=== PATIENT | female | born 1970 | race Caucasian/White ===

== ENCOUNTER 2023-04-17 14:18 | Emergency (ER) | payer MEDICAID, SELFPAY ==
[2023-04-17 14:21] VITALS: BP 186/99; PULSE 68; RESP 13; TEMP 36.7; O2SAT 98
[2023-04-17 14:29] VITALS: BP 186/99; PULSE 67; RESP 16; O2SAT 98
--- NOTE | 2023-04-17 14:31 | EDS_ITS ---
HPI History of Present Illness Chief Complaint: Neuro S/Sx Informant: patient and EMS Narrative Narrative: I also talked directly with EMS to get their history and impressions. Patient presents with visual changes and slight tingling of her face. Patient was at work. She was not doing anything strenuous. She started to get bright lights flashing in her vision. They were more on her left but they were both sides. She just did not feel well with this. But she did not have a headache. Not syncopal or presyncopal. No chest pain or palpitations. She got concerned. She was driving to urgent care. She then got some tingling of her lips and face. She thinks that was just getting very anxious about the visual symptoms. The symptoms are gone now. She just feels concerned now. She never got numbness tingling or weakness or discoordination of arms or legs. She had no trouble speaking or understanding speech. She does have a history of migraines but has not had one for decades. She does not recall ever having a complex migraine. Patient has no medical problems including no history of diabetes, cholesterol, hypertension, heart disease, strokes. Also, her last visit to her private physician was about a year ago so she does get regular medical care and have found no medical problems. She is on no medications at all. She has no allergies. Only surgery is partial hysterectomy. Patient does not know her family history as she is adopted. She has never been a smoker. [facility] Home Medications NK 04/17/23 [History Last Taken Unknown] Allergy/AdvReac Type Severity Reaction Status Date / Time No Known Allergies Allergy Verified 04/17/23 14:30 Surgical History History of partial hysterectomy Social History Smoking Status: Never smoker ROS ROS ED ROS Narrative A complete review of systems was performed and is negative except as documented in the history of present illness. Some specific details below. Constitutional: No recent fevers or chills. No rigors. Patient has not generally felt ill. She felt well until this occurred. EYE: Please see history of present illness. ENT: No difficulty swallowing. No swelling. No sinus pressure or pain. No nasal discharge. No change in hearing. No ear pain. She did have some tingling around her lips and tongue. This was on both sides. CV: No chest pain, pressure or aching. No palpitations or irregular beats. Patient has not been presyncopal or syncopal. Respiratory: No trouble breathing. No cough. No wheezing. No sputum production. No pain with breathing. GI: No abdominal pain. No nausea vomiting diarrhea. No blood in stool. : No frequency dysuria or hematuria. Musculoskeletal: No recent trauma. No pains. No swelling. Skin: No rash. Nondiaphoretic now or with event. Neuro: Please see history of present illness. Endocrine: No polyuria or polydipsia. EXAM Physical Exam Narrative Exam Narrative: CONSTITUTIONAL: Patient is nontoxic in appearance. The patient looks comfortable. Work of breathing looks normal. She is calm. She has coordinated. She can grab things in and out of her purse and move around without any discoordination. HEENT: No notable trauma. Mucous membranes moist. No sinus tenderness. No vesicles. Normal smile and closing eyes. EYES: No conjunctival injection. No proptosis. No pain with range of motion. No pallor. Visual arroyo are normal by direct confrontation. She is also not having symptoms now. NECK: No meningismus. No JVD. CARDIOVASCULAR: Regular rate. Regular rhythm. No notable murmur. No JVD. RESPIRATORY: No respiratory distress. Breathing is unlabored. No wheezes. No rhonchi. No rales. No pain with a deep breath. GASTROINTESTINAL: Not distended. Bowel sounds are normal. No tenderness. No guarding. No rebound. No palpable mass. No bruit. GENITOURINARY: No tenderness over the bladder. No CVA tenderness. MUSCULOSKELETAL: Atraumatic. No peripheral edema. NEUROLOGICAL: Patient is alert and oriented. No focal deficit noted. NIH stroke scale is 0. I cannot bring out any deficit at this time. I also brought up pictures of visual scotoma from the Internet and showed these to the patient. She was able to pick out 2 that reminded her quite similarly to what she had experienced. SKIN: No noted rashes. No diaphoresis. No vesicles noted. No notable pallor. PSYCHIATRIC: Patient is calm. Mood is appropriate. Const Vital Signs: 04/17/23 14:21 04/17/23 14:29 04/17/23 14:55 Temperature 98.0 F Temperature Source Oral Pulse Rate 68 67 61 Respiratory Rate 13 16 16 Blood Pressure 186/99 H 186/99 H 133/102 H Blood Pressure Mean 128 128 112 Pulse Ox 98 98 Oxygen Delivery Method Room Air Room Air Room Air 04/17/23 15:40 04/17/23 16:10 Temperature Temperature Source Pulse Rate 59 L 58 L Respiratory Rate 11 L 8 L Blood Pressure 186/86 H 166/82 H Blood Pressure Mean 119 110 Pulse Ox Oxygen Delivery Method Room Air Room Air MDM MDM MDM Narrative Medical decision making narrative: Patient CBC is normal. Patient's electrolytes are normal. Patient's liver function test are normal. I independent her potation the patient's CT of the head without contrast shows no acute process and this is consistent with a final reading. Patient never had a lateralizing findings. She had visual scotoma on both eyes even though she thinks they may have been more left. She had some tingling around her lips and tongue. She does have a history of migraines although they are remote. She is very low risk for stroke. She is still asymptomatic. I think is reasonable she has close follow-up. I do not have a clinical indication that this is stroke. It is much more likely that this was scotoma related to visual migraines. I explained that she may get a headache up to 2 days after the symptoms. She will follow-up with her private physician. We also recommend getting cholesterol checked as part of total health screening. We do not have any discharge instructions for visual ocular migraines or visual scotoma so I have printed some off of the web and including instructions for classical migraine. Lab Data Attestation: I reviewed the patient's lab results. Labs: Laboratory Results - last 24 hr 04/17/23 14:00 WBC 5.6 RBC 4.53 Hgb 13.8 Hct 42.6 MCV 94.0 MCH 30.5 MCHC 32.4 RDW Std Deviation 40.4 RDW Coeff of Musa 11.8 Plt Count 306 MPV 9.9 Immature Gran % (Auto) 0.400 Neut % (Auto) 53.4 Lymph % (Auto) 30.5 Sequoyah % (Auto) 12.1 H Eos % (Auto) 2.5 Baso % (Auto) 1.1 H Absolute Neuts (auto) 3.0 Absolute Lymphs (auto) 1.72 Nucleated RBC % 0 PT 13.4 INR 1.0 APTT 28.4 Sodium 133 L Potassium 4.0 Chloride 102 Carbon Dioxide 26.0 Anion Gap 5 BUN 13 Creatinine 0.88 Est GFR (MDRD) Af Amer 87 Est GFR (MDRD) Non-Af 72 BUN/Creatinine Ratio 14.9 Glucose 93 Calcium 8.9 Total Bilirubin 0.30 AST 18 ALT 34 Alkaline Phosphatase 72 Total Protein 7.5 Albumin 4.1 Globulin 3.4 Albumin/Globulin Ratio 1.2 Radiography Diagnostic Testing: Clinical Impression(s) from Imaging Studies Brain CT 04/17/23 15:25 IMPRESSION: Negative head/brain CT without intravenous contrast. Electronically Signed: Ambrocio Izquierdo MD at 15:48 EDT , EKG Initial EKG: Comments: My independent interpretation the patient's EKG shows a normal sinus rhythm with overall rate at 70. No ectopy. No acute ST elevation or depression. MD interval QRS duration and QTc are normal. This is overall a normal EKG. Discharge Plan Triage Chief Complaint: Neuro S/Sx ED Provider: Moreno Hope Dx/Rx/DC Orders Clinical Impression: Facial tingling sensation, Visual field scotoma of both eyes Instructions: ED, Migraine (Classical) Prescriptions: No Action NK Primary Care Provider: Care Physician,No Primary Referrals: Care Physician,No Primary [Primary Care Provider] - Activity Restrictions/Additional Instructions: Follow-up with your physician in [place] as soon as possible Disposition Disposition: Home, Self Care
--- NOTE | 2023-04-17 14:31 | EKG12_ITS ---
Test Reason : nuero Blood Pressure : / mmHG Vent. Rate : 060 BPM Atrial Rate : 060 BPM P-R Int : 142 ms QRS Dur : 074 ms QT Int : 424 ms P-R-T Axes : 016 007 013 degrees QTc Int : 424 ms Normal sinus rhythm Normal ECG Confirmed by TORO GREEN, LOPEZ ([id number]), advertising editor JE KILPATRICK ([id number]) on 04/19/2023 11:30:07 AM Referred By: Confirmed By:CHAPIS ENGEL MD
[2023-04-17 14:46] LABS: Absolute Lymphocyte Count 1.72 X10^3/uL (0.83-4.51); Basophil# 0.06 X10^3/uL; Basophil% 1.1 % (0-1); Eosinophil# 0.14 X10^3/uL; Eosinophils% 2.5 % (0-5); Hematocrit 42.6 % (37-47); Hemoglobin 13.8 g/dL (12.0-15.0); Lymphocyte # 1.72 X10^3/ul (0.83-4.51); Lymphocyte % 30.5 % (19-41); Mean Corp Hgb Conc 32.4 g/dL (32-36); Mean Corpuscular Hgb 30.5 pg (27.0-32.0); Mean Platelet Vol. 9.9 fl (6.2-12.0); Monocyte# 0.68 X10^3/uL; Monocyte% 12.1 % (0-10); NRBC Flagged by Analyzer 0 % (0-5); Neutrophil # 3.02 X10^3/uL (2.7-7.7); Neutrophil % 53.4 % (47-70); Platelet Count 306 K/mm3 (150-450); RBC Distribution Width CV 11.8 % (11.6-14.6); RBC Distribution Width SD 40.4 fl (35.1-43.9); Red Blood Count 4.53 M/mm3 (4.2-5.4); White Blood Count 5.6 K/mm3 (4.4-11.0)
[2023-04-17 14:54] LABS: Prothrombin Time (Protime)PT. 13.4 SECONDS (11.7-14.9)
[2023-04-17 14:55] VITALS: BP 133/102; PULSE 61; RESP 16
[2023-04-17 14:55] LABS: Partial Thromboplast Time 28.4 Seconds (24.1-36.2)
[2023-04-17 15:11] LABS: ALB/GLOB Ratio 1.2 RATIO (0.9-2.4); AST(SGOT) 18 U/L (15-37); Alanine Aminotransfer ALT/SGPT 34 U/L (13-56); Albumin, Serum 4.1 g/dL (3.2-5.0); Alkaline Phosphatase 72 U/L (45-117); Anion Gap 5 (5-15); BUN 13 mg/dL (7-18); BUN/Creat Ratio 14.9 RATIO (10-20); Calcium,Total 8.9 mg/dL (8.5-10.1); Chloride 102 mmol/L (98-107); Creatinine, Serum 0.88 mg/dL (0.55-1.02); EST Glomerular Filtration Rate 72 mL/min (>60); Est Glom Filt Rate - Afr Amer 87 mL/min (>60); Globulin 3.4 g/dL (2.2-4.2); Glucose 93 mg/dL (74-106); Protein, Total 7.5 g/dL (6.4-8.2); Sodium Level 133 mmol/L (136-145)
--- NOTE | 2023-04-17 15:25 | CT_ITS ---
EXAM: CT HEAD WITHOUT INTRAVENOUS CONTRAST CLINICAL INDICATION: Visual scotoma TECHNIQUE: Multiple axial images were obtained of the head without intravenous contrast. This CT exam was performed using one or more of the following dose reduction techniques: automated exposure control, adjustment of the mA and/or kV according to patient size, and/or use of iterative reconstruction technique. RADIATION DOSE: CTDIvol = 44.99 mGy, DLP = 796.11 mGy-cm COMPARISON: No relevant prior studies available. FINDINGS: BRAIN AND EXTRA-AXIAL SPACES: Unremarkable. No intra- or extra-axial hemorrhage. No evidence of acute infarct. No intracranial mass or mass effect. There is preservation of the jules/white matter interface. Posterior fossa structures are unremarkable. Ventricles are appropriate for age. No hydrocephalus. Basal cisterns are patent. BONES/JOINTS: Unremarkable. No discrete lytic or blastic abnormalities. SINUSES: Unremarkable as visualized. Clear. MASTOID AIR CELLS: Unremarkable. Clear. ORBITS: Visualized globes, extraocular muscles, optic nerves and retrobulbar fat appear unremarkable. CT/Brain/Head without Contrast IMPRESSION: Negative head/brain CT without intravenous contrast. Electronically Signed: Ambrocio Izquierdo MD at 15:48 EDT ,
[2023-04-17 15:40] VITALS: BP 186/86; PULSE 59; RESP 11
[2023-04-17 16:10] VITALS: BP 166/82; PULSE 58; RESP 8
[2023-04-17 16:36] VITALS: BP 167/85; PULSE 60; RESP 17
[2023-04-17 16:43] VITALS: BMI 27.7
== END 2023-04-17 16:44 | disposition home or self-care (01) ==
PROVIDERS: Emergency Provider Emergency Medicine; Visit Provider Emergency Medicine
DX: H53.413 Scotoma involving central area, bilateral (principal); R20.2 Paresthesia of skin; G43.809 Other migraine, not intractable, without status migrainosus
CPT/HCPCS: 70450; 80053; 85025; 85610; 85730; 93005; 96360; 96361; 99285; J7040